=== PATIENT | female | born 1995 | race Caucasian/White ===

== ENCOUNTER 2017-10-14 17:05 | Emergency (ER) | payer MEDICAID, OTHER ==
[~2017-10-14] VITALS: Ht 167.6 cm; Wt 74.8 kg
[~2017-10-14 17:05] MED LIST: ALYACEN1 EAC1 PO; IBUPROFEN600 MG ORAL; IBUPROFEN800 MG ORAL; NKM; NORCO 5-325 TA1 EACH ORAL
[2017-10-14 18:00] VITALS: BP 110/75
--- NOTE | 2017-10-14 18:46 | Emergency Room Report ---
History of Present Illness General Chief Complaint: Pain Source: Patient Present Illness HPI 21-year-old female presents to the emergency department with 2 complaints. the first is 10 out of 10 in severity sore throat, fevers, chills times approximately 4 days. Patient reports she was seen at [facility] emergency department and discharged without any medications. Patient reports pain is exacerbated upon swallowing. Patient also reports that she has been having a long-standing history of vaginal discharge for which she's been treated for that she'll that she notices as well as yeast and she continues to repeatedly have return of her symptoms. Patient states that she is currently experiencing discharge she denies dysuria, hematuria, vaginal lesions or swollen tender lymph nodes. Patient denies history of unprotected intercourse and denies history of STDs. Patient denies abdominal pain. Denies CP, Palpitations, LOC, AMS, dizziness, Changes in Vision, Sensation, paresthesias, or a sudden severe headache. Allergies: Coded Allergies: No Known Allergies (Unverified , 07/21/14) Patient History Past Medical History: see triage record Past Surgical History: none Pertinent Family History: none Last Menstrual Period: 1 month Now: No Reviewed Nursing Documentation: PMH: Agreed, PSxH: Agreed Nursing Documentation-PMH Past Medical History: No Stated History Review of Systems All Other Systems: negative except mentioned in HPI Physical Exam Vital Signs Date Time Temp Pulse Resp B/P (MAP) Pulse Ox O2 Delivery O2 Flow Rate FiO2 10/14/17 17:11 97.9 101 18 108/72 95 Room Air Sp02 EP Interpretation: reviewed, normal General Appearance: no apparent distress, alert, GCS 15, non-toxic Head: normocephalic, atraumatic Eyes: bilateral eye normal inspection, bilateral eye PERRL ENT: hearing grossly normal, normal voice, TMs + canals normal, uvula midline, moist mucus membranes, nasal congestion, tonsillar swelling, tonsillar exudate Neck: full range of motion, no meningismus, no bony tend Respiratory: chest non-tender, lungs clear, normal breath sounds, no rhonchi, speaking full sentences Cardiovascular #1: regular rate, rhythm, no edema Gastrointestinal: non tender, soft Rectal: deferred Genitourinary: normal inspection, no CVA tenderness, adnexa normal, other - swelling and tenderness to the external vaginal labia, thick white d/c noted. Musculoskeletal: back normal, gait/station normal, normal range of motion, non- tender Neurologic: alert, oriented x3, responsive, motor strength/tone normal, sensory intact, speech normal, grossly normal Psychiatric: judgement/insight normal Skin: normal color, no rash, warm/dry, well hydrated Lymphatic: other - bilateral subparotid LAD. Medical Decision Making PA Attestation Dr. Suarez is my supervising Physician whom patient management has been discussed with. Diagnostic Impression: Primary Impression: Strep pharyngitis Additional Impressions: UTI (urinary tract infection) Qualified Codes: N30.01 - Acute cystitis with hematuria Vaginitis and vulvovaginitis ER Course 21-year-old female presents to the emergency department with 2 complaints. the first is 10 out of 10 in severity sore throat, fevers, chills times approximately 4 days. Patient reports she was seen at [facility] emergency department and discharged without any medications. Patient reports pain is exacerbated upon swallowing. Patient also reports that she has been having a long-standing history of vaginal discharge for which she's been treated for that she'll that she notices as well as yeast and she continues to repeatedly have return of her symptoms. Patient states that she is currently experiencing discharge she denies dysuria, hematuria, vaginal lesions or swollen tender lymph nodes. Patient denies history of unprotected intercourse and denies history of STDs. Patient denies abdominal pain. Denies CP, Palpitations, LOC, AMS, dizziness, Changes in Vision, Sensation, paresthesias, or a sudden severe headache. Ddx considered but are not limited to: pharyngitis, strep, COMMUNICATION INSTRUCTOR, Lud[place]igs angina, URI , UTI, Vaginitis, BV just to name a few. Vital signs: are WNL, pt. is afebrile H&PE are most consistent with: pharyngitis presumed strep. ORDERS: -WET MOUNT: no yeast, trich or Clue cells -UA: Positive for infection : bacteria with elevated inflammatory markers. ED INTERVENTIONS: -IM Abx. -Decadron IM --Morphine IM DISCHARGE: At this time pt. is stable for d/c to home. Will provide printed patient care instructions, and any necessary prescriptions. Care plan and follow up instructions have been discussed with the patient prior to discharge. Labs Test 10/14/17 17:13 Urine Color Brown Urine Appearance Slightly cloudy Urine pH 5 (4.5-8.0) Urine Specific [place] 1.025 (1.005-1.035) Urine Protein 2+ (NEGATIVE) Urine Glucose (UA) Negative (NEGATIVE) Urine Ketones 1+ (NEGATIVE) Urine Occult Blood Negative (NEGATIVE) Urine Nitrite Negative (NEGATIVE) Urine Bilirubin Negative (NEGATIVE) Urine Urobilinogen Normal MG/DL (0.0-1.0) Urine Leukocyte Esterase 3+ (NEGATIVE) Urine RBC 2-4 /HPF (0 - 2) Urine WBC 5-10 /HPF (0 - 2) Urine Squamous Epithelial Cells Few /LPF (NONE/OCC) Urine Bacteria Moderate /HPF (NONE) Last Vital Signs Date Time Temp Pulse Resp B/P (MAP) Pulse Ox O2 Delivery O2 Flow Rate FiO2 10/14/17 17:11 97.9 101 18 108/72 95 Room Air Disposition: HOME, SELF-CARE Condition: Stable Scripts Ibuprofen* (MOTRIN*) 600 Mg Tablet 600 MG ORAL THREE TIMES A DAY, #30 TAB 0 Refills Prov: Ermelinda Gamble 10/14/17 Lidocaine HCl 2% Viscous (Lidocaine HCl 2% Viscous) 100 Ml Solution 15 ML ORAL QID, #200 ML Prov: Ermelinda Gamble 10/14/17 Fluconazole (FLUCONAZOLE) 100 Mg Tablet 100 MG ORAL DAILY for 4 Days, #4 TAB 0 Refills Prov: Ermelinda Gamble 10/14/17 Nitrofurantoin Monohyd/M-Cryst* (MACROBID 100 MG*) 100 Mg Capsule 100 MG ORAL EVERY 12 HOURS for 5 Days, #10 CAP Prov: Ermelinda Gamble 10/14/17 Referrals: [facility] (PCP) Patient Instructions: Strep Throat, Urinary Tract Infection, [id number], Vaginitis, [id number] Additional Instructions: Take medications as directed. Follow up with a GEAR TESTER in 3-5 days, even if your symptoms have resolved. --Please review list of primary care clinics, if you do not already have a primary care provider Return sooner to ED if new symptoms occur, or current symptoms become worse. - Please note that this Emergency Department Report was dictated using [employer]vertising[employer] design professor technology software, occasionally this can lead to erroneous entry secondary to interpretation by the dictation equipment. Ermelinda Gambleb 8, 2018 18:46
[2017-10-14] MEDS ORDERED: Morphine Sulfate 4mg/ml Inj IM ONE (19:00)
[2017-10-14] MEDS ORDERED: Dexamethasone 4mg/ml vial IM ONE (19:00)
[2017-10-14] MEDS ORDERED: Bicillin LA 1.2 Million Units Syr IM ONE (19:00)
[2017-10-14 19:40] LABS: APPEARANCE,URINE SLIGHTLY CLOUDY; BILIRUBIN, URINE NEGATIVE (NEGATIVE); COLOR,URINE BROWN; GLUCOSE, URINE (UA) NEGATIVE (NEGATIVE); KETONES,URINE 1+ (NEGATIVE); LEUKOCYTE ESTERASE ,URINE 3+ (NEGATIVE); NITRITE,URINE NEGATIVE (NEGATIVE); PH,URINE 5 (4.5-8.0); PROTEIN,URINE 2+ (NEGATIVE); UROBILINOGEN,URINE NORMAL MG/DL (0.0-1.0)
[2017-10-14] MEDS ORDERED: NITROFURANTOIN100 M2 ORAL (20:21)
[2017-10-14] MEDS ORDERED: FLUCONAZOLE100 MG ORAL (20:21)
[2017-10-14] MEDS ORDERED: IBUPROFEN600 MG ORAL (20:21)
[2017-10-14] MEDS ORDERED: LIDOCAINE VISC100 ML ORAL (20:21)
[2017-10-14 20:38] VITALS: BP 110/75
== END 2017-10-14 20:40 | disposition home or self-care (01) ==
LOC: EMR 17:30
DX: J02.0 Streptococcal pharyngitis (principal); N39.0 Urinary tract infection, site not specified
CPT/HCPCS: 81003; 87086; 87210; 96372; 99284; J0561; J1100; J2270

== ENCOUNTER 2018-08-14 13:37 | Emergency (ER) | payer MEDICAID ==
[~2018-08-14] VITALS: Ht 167.6 cm; Wt 72.6 kg
[~2018-08-14 13:37] MED LIST changes: +FLUCONAZOLE100 MG ORAL; +LIDOCAINE VISC100 ML ORAL; +NITROFURANTOIN100 M2 ORAL
[2018-08-14 13:52] VITALS: BP 123/72
--- NOTE | 2018-08-14 14:12 | Emergency Room Report ---
History of Present Illness General Chief Complaint: Upper Respiratory Illness Source: Patient Present Illness HPI 22-year-old female with no significant past medical history here complaining of one day of sore throat stool and neck and generalized body ache. Please of low- grade fever and chills. She is rating the pain Of 10 Has Taken Amoxicillin That Was Prescribed to Her One Day Ago by Her Employer Who Happens to Be a Physician and Reports No Improvement with the Amoxicillin. Denies Rhinorrhea, Congestion, SOB, Cough, Chest Pain, Palpitation, Abdominal Pain, Nausea Vomiting Diarrhea. Patient Reports That about A Few Months Ago She Had Similar Symptoms Came Here and Was Given an Injection of Amoxicillin Patient Wants an Injection of Amoxicillin at This Time As She Mentions That She Needs to Go to Work Tomorrow. Denies All Other Associated Symptoms Allergies: Coded Allergies: No Known Allergies (Unverified , 07/21/14) Patient History Past Medical History: see triage record Past Surgical History: none Pertinent Family History: none Now: No Immunizations: UTD Reviewed Nursing Documentation: PMH: Agreed; PSxH: Agreed Nursing Documentation-PMH Past Medical History: No Stated History Review of Systems All Other Systems: negative except mentioned in HPI Physical Exam Vital Signs Date Time Temp Pulse Resp B/P (MAP) Pulse Ox O2 Delivery O2 Flow Rate FiO2 08/14/18 13:51 98.6 86 16 120/70 99 Room Air Sp02 EP Interpretation: reviewed, normal General Appearance: normal inspection, well appearing, no apparent distress, alert, GCS 15 Head: normocephalic, atraumatic Eyes: bilateral eye normal inspection, bilateral eye PERRL ENT: hearing grossly normal, no angioedema, normal voice, TMs + canals normal, tonsillar swelling - 2+ bilaterally, pharyngeal erythema Neck: full range of motion, supple, other - Bilateral anterior cervical lymphadenopathy Respiratory: normal inspection, chest non-tender, lungs clear, no wheezing Cardiovascular #1: normal inspection, no edema, no JVD, no murmur Gastrointestinal: normal inspection, soft, no mass Rectal: deferred Genitourinary: deferred Musculoskeletal: normal inspection, back normal Neurologic: normal inspection, alert, oriented x3 Psychiatric: normal inspection, judgement/insight normal, memory normal Skin: normal inspection, normal color, no rash, warm/dry Lymphatic: adenopathy - bilateral anterior cervical Medical Decision Making PA Attestation other diagnoses and treatment plans are reviewed and discussed with supervising physician Dr. Bentley Diagnostic Impression: Primary Impression: Acute pharyngitis with influenza ER Course 22-year-old female with no significant past medical history here complaining of one day of sore throat stool and neck and generalized body ache. Please of low- grade fever and chills. She is rating the pain Of 10 Has Taken Amoxicillin That Was Prescribed to Her One Day Ago by Her Employer Who Happens to Be a Physician and Reports No Improvement with the Amoxicillin. Denies Rhinorrhea, Congestion, SOB, Cough, Chest Pain, Palpitation, Abdominal Pain, Nausea Vomiting Diarrhea. Patient Reports That about A Few Months Ago She Had Similar Symptoms Came Here and Was Given an Injection of Amoxicillin Patient Wants an Injection of Amoxicillin at This Time As She Mentions That She Needs to Go to Work Tomorrow. Denies All Other Associated Symptoms Ddx considered but are not limited to influenza, URI, strep pharyngitis Vital signs: are WNL, pt. is afebrile H&PE are most consistent with pharyngitis due to influenza ORDERS: Tamiflu, naproxen ED INTERVENTIONS: None required at this time. DISCHARGE: At this time pt. is stable for d/c to home. Will provide printed patient care instructions, and any necessary prescriptions. Care plan and follow up instructions have been discussed with the patient prior to discharge. she has explained that antibiotics are only for bacteria and she gives insisting on taking them and she has been told that if she doesn't start feeling better in one week and she can start with her amoxicillin however she reports that at 21 day supply of amoxicillin was given to her by her employer [employer] further verbalizes that she understand that she has a viral infection and antibiotics will not help with viral infections Last Vital Signs Date Time Temp Pulse Resp B/P (MAP) Pulse Ox O2 Delivery O2 Flow Rate FiO2 08/14/18 13:51 98.6 86 16 120/70 99 Room Air Disposition: HOME, SELF-CARE Condition: Stable Scripts Naproxen* (NAPROXEN*) 500 Mg Tablet 500 MG ORAL TWICE A DAY for 7 Days, #14 TAB Prov: Amado Chowdhury 08/14/18 Oseltamivir Phosphate (Tamiflu) 75 Mg Capsule 75 MG ORAL TWICE A DAY for 5 Days, #10 CAP Prov: Amado Chowdhury 08/14/18 Referrals: [facility] (PCP) Patient Instructions: Pharyngitis, [id number] Additional Instructions: take Tamiflu as direct as, rest and hydrate, avoid spicy and greasy foods, antibiotics are not advised at this plan as discussed is a viral infection Amado Chowdhury Aug 14, 2018 14:12
[2018-08-14] MEDS ORDERED: TAMIFLU75 MG ORAL (14:13)
[2018-08-14] MEDS ORDERED: NAPROXEN500 M2 ORAL (14:13)
[2018-08-14 14:23] VITALS: BP 123/72
== END 2018-08-14 14:23 | disposition home or self-care (01) ==
LOC: EMR 13:58
DX: J11.1 Influenza due to unidentified influenza virus with other respiratory manifestations (principal)
CPT/HCPCS: 99283

== ENCOUNTER 2019-10-23 18:46 | Emergency (ER) | payer MEDICAID ==
[~2019-10-23] VITALS: Ht 170.2 cm; Wt 90.7 kg
[~2019-10-23 18:46] MED LIST changes: +NAPROXEN500 M2 ORAL; +TAMIFLU75 MG ORAL
--- NOTE | 2019-10-23 19:05 | NUR ---
ED Nurse Note: Patient walked in to ER due to painful urination since yestrday. AAO x4, VSS at this time.
--- NOTE | 2019-10-23 19:08 | NUR ---
ED Nurse Note: urinate sent
--- NOTE | 2019-10-23 19:09 | NUR ---
HAND-OFF: Report given to donte mercedes.
[2019-10-23 19:10] VITALS: BP 140/85
--- NOTE | 2019-10-23 19:33 | Emergency Room Report ---
History of Present Illness General Chief Complaint: Female Urogenital Problems Source: Patient Present Illness HPI 23-year-old female presents to the emergency department complaining of 8 out of 10 severity dysuria x2 days. Patient denies hematuria she reports urinary frequency. Patient denies fevers, chills, low back pain or abdominal pain/ tenderness. Patient denies vaginal discharge, genital lesions or rashes. She denies nausea or vomiting. She denies recent antibiotic use. She is currently on her period. She denies suspicion of . Allergies: Coded Allergies: No Known Allergies (Unverified , 07/21/14) Patient History Past Medical History: see triage record Past Surgical History: none Pertinent Family History: none Last Menstrual Period: now Now: No Reviewed Nursing Documentation: PMH: Agreed; PSxH: Agreed Nursing Documentation-PMH Past Medical History: No Stated History Review of Systems All Other Systems: negative except mentioned in HPI Physical Exam Vital Signs Date Time Temp Pulse Resp B/P (MAP) Pulse Ox O2 Delivery O2 Flow Rate FiO2 10/23/19 18:51 98.2 84 18 140/85 (103) 98 Room Air Sp02 EP Interpretation: reviewed, normal General Appearance: no apparent distress, alert, GCS 15, non-toxic Head: normocephalic, atraumatic Eyes: bilateral eye normal inspection, bilateral eye PERRL ENT: hearing grossly normal, normal voice Neck: full range of motion Respiratory: lungs clear, normal breath sounds, speaking full sentences Cardiovascular #1: regular rate, rhythm Gastrointestinal: normal bowel sounds, non tender, soft, non-distended, no guarding Genitourinary: normal inspection, no CVA tenderness Musculoskeletal: normal range of motion, gait/station normal, non-tender Neurologic: alert, motor strength/tone normal, oriented x3, sensory intact, responsive, speech normal Psychiatric: judgement/insight normal Skin: no rash Medical Decision Making PA Attestation Dr. Mccarthy is my supervising Physician whom patient management has been discussed with. Diagnostic Impression: Primary Impression: Dysuria ER Course 23-year-old female presents to the emergency department complaining of 8 out of 10 severity dysuria x2 days. Patient denies hematuria she reports urinary frequency. Patient denies fevers, chills, low back pain or abdominal pain/ tenderness. Patient denies vaginal discharge, genital lesions or rashes. She denies nausea or vomiting. She denies recent antibiotic use. She is currently on her period. She denies suspicion of . Ddx considered but are not limited to UTi , Pyelo, STI, Stone, Cystitis Vital signs: are WNL, pt. is afebrile H&PE are most consistent with UTI ORDERS: - UA labs are attached --WNL ED INTERVENTIONS: Pyridium PO DISCHARGE: At this time pt. is stable for d/c to home. Will provide printed patient care instructions, and any necessary prescriptions. Care plan and follow up instructions have been discussed with the patient prior to discharge. Labs Test 10/23/19 19:06 Urine Color Pale yellow Urine Appearance Clear Urine pH 6 (4.5-8.0) Urine Specific [place] 1.010 (1.005-1.035) Urine Protein Negative (NEGATIVE) Urine Glucose (UA) Negative (NEGATIVE) Urine Ketones 1+ (NEGATIVE) Urine Blood Negative (NEGATIVE) Urine Nitrite Negative (NEGATIVE) Urine Bilirubin Negative (NEGATIVE) Urine Urobilinogen Normal MG/DL (0.0-1.0) Urine Leukocyte Esterase Negative (NEGATIVE) Last Vital Signs Date Time Temp Pulse Resp B/P (MAP) Pulse Ox O2 Delivery O2 Flow Rate FiO2 10/23/19 19:10 98.2 18 140/85 98 Room Air 10/23/19 18:51 84 Status: improved Disposition: HOME, SELF-CARE Condition: Stable Scripts Phenazopyridine Hcl* (PYRIDIUM*) 200 Mg Tablet 200 MG ORAL THREE TIMES A DAY, #9 TAB 0 Refills Prov: Ermelinda Gamble 10/23/19 Patient Instructions: Dysuria Additional Instructions: Take medications as directed. Follow up with a Primary Care Provider in 3-5 days, even if your symptoms have resolved. Return sooner to ED if new symptoms occur, or current symptoms become worse. - Please note that this Emergency Department Report was dictated using [employer] plug packer technology software, occasionally this can lead to erroneous entry secondary to interpretation by the dictation equipment. Ermelinda Gamble Oct 23, 2019 19:33
[2019-10-23 19:34] LABS: APPEARANCE,URINE CLEAR; BILIRUBIN, URINE NEGATIVE (NEGATIVE); COLOR,URINE PALE YELLOW; GLUCOSE, URINE (UA) NEGATIVE (NEGATIVE); KETONES,URINE 1+ (NEGATIVE); LEUKOCYTE ESTERASE ,URINE NEGATIVE (NEGATIVE); NITRITE,URINE NEGATIVE (NEGATIVE); PH,URINE 6 (4.5-8.0); PROTEIN,URINE NEGATIVE (NEGATIVE); UROBILINOGEN,URINE NORMAL MG/DL (0.0-1.0)
[2019-10-23] MEDS ORDERED: Phenazopyridine 200mg tab ORAL ONE (19:45)
[2019-10-23] MEDS ORDERED: PHENAZOPYRIDIN200 MG ORAL (20:22)
[2019-10-23 20:25] VITALS: BP 140/85
--- NOTE | 2019-10-23 20:26 | NUR ---
ED Nurse Note: Pt cleared by health care Provider for discharge. DC instructions/prescription was given and explained to pt and verbalized understanding of teachings. All medical deviecs such as ID band removed. Pt is AAO x4, ambulatory and left with all personal belongings.
== END 2019-10-23 20:25 | disposition home or self-care (01) ==
LOC: EMR 20:17
DX: R30.0 Dysuria (principal)
CPT/HCPCS: 81003; Z7502; 99283

== ENCOUNTER 2020-06-11 23:52 | Emergency (ER) | payer MEDICAID ==
[~2020-06-11] VITALS: Ht 167.6 cm; Wt 90.3 kg
[~2020-06-11 23:52] MED LIST changes: +PHENAZOPYRIDIN200 MG ORAL
--- NOTE | 2020-06-12 00:10 | NUR ---
ED Nurse Note: Patient walked into the ED with c/o left knee pain. Patient rates pain 10/10, pain behind the knees radiating to hamstrings onset last night after doing leg exercises. Patient denies fever and chills, denies LOC or any other injury or trauma, denies N&V. Patient denies taking any pain meds. Patient is ambulatory.
--- NOTE | 2020-06-12 00:15 | NUR ---
ED Nurse Note: ERMD at bedside.
--- NOTE | 2020-06-12 00:30 | NUR ---
ED Nurse Note: Xray done at bedside
[2020-06-12] MEDS ORDERED: Ketorolac 60mg Inj IM ONE (01:00)
[2020-06-12] MEDS ORDERED: Cyclobenzaprine 10mg Tab ORAL ONE (01:00)
--- NOTE | 2020-06-12 01:00 | NUR ---
ED Nurse Note: Knee immobilizer applied to left leg.
[2020-06-12] MEDS ORDERED: CYCLOBENZAPRINE10 MG ORAL (01:09)
[2020-06-12] MEDS ORDERED: TYLENOL325 MG ORAL (01:09)
[2020-06-12 01:30] VITALS: BP 132/78
--- NOTE | 2020-06-12 01:40 | NUR ---
ER DISCHARGE NOTE: Patient is cleared to be discharged per ERMD, pt is aox4, on room air, with stable vital signs. pt was given dc and prescription instructions, pt was able to verbalize understanding, pt id band removed. pt is able to ambulate with steady gait with knee immobilizer. pt took all belongings.
--- NOTE | 2020-06-12 01:55 | Emergency Room Report ---
History of Present Illness General Chief Complaint: Lower Extremity Injury Source: Patient Present Illness HPI 24-year-old female here with left posterior thigh pain. Patient says that she was at the gym and "a heavy workout where was flexing my left leg" 2 days ago and says that yesterday she began to feel deep soreness of the left hamstring muscle. Has been taking Mobic with only mild relief. No leg swelling. No history of smoking. No long car rides or plane rides. Does not take any medications and does not take any hormone supplementation. No history of DVT or PE among herself or the family. No surgical history. Allergies: Coded Allergies: No Known Allergies (Unverified , 07/21/14) COVID-19 Screening Contact w/high risk pt: No Experienced COVID-19 symptoms?: No COVID-19 Testing performed NEWSPERSON: No Patient History Last Menstrual Period: 06/06/20 Now: No Nursing Documentation-[facility] Past Medical History: No Stated History Review of Systems All Other Systems: negative except mentioned in HPI Physical Exam Vital Signs Date Time Temp Pulse Resp B/P (MAP) Pulse Ox O2 Delivery O2 Flow Rate FiO2 06/12/20 00:09 98.1 80 18 132/78 (96) 96 Room Air Sp02 EP Interpretation: reviewed, normal General Appearance: no apparent distress, alert, GCS 15, non-toxic Head: normocephalic, atraumatic Eyes: bilateral eye normal inspection, bilateral eye PERRL ENT: hearing grossly normal, normal pharynx, no angioedema, normal voice Neck: full range of motion, supple/symm/no masses Respiratory: chest non-tender, lungs clear, normal breath sounds, speaking full sentences Cardiovascular #1: regular rate, rhythm, no edema Cardiovascular #2: 2+ carotid (R), 2+ carotid (L), 2+ radial (R), 2+ radial (L), 2+ dorsalis pedis (R), 2+ dorsalis pedis (L) Gastrointestinal: normal bowel sounds, non tender, soft, non-distended, no guarding, no rebound Rectal: deferred Genitourinary: normal inspection, no CVA tenderness Musculoskeletal: back normal, normal range of motion, calf tenderness, gait/station normal, tender, other - Pinpoint tenderness on palpation of the distal left hamstring muscle. No leg swelling. Normal pulses. Neurologic: alert, motor strength/tone normal, oriented x3, sensory intact, responsive, speech normal Psychiatric: judgement/insight normal, memory normal, mood/affect normal, no suicidal/homicidal ideation Reflexes: 3+ bicep (R), 3+ bicep (L), 3+ tricep (R), 3+ tricep (L), 3+ knee (R), 3+ knee (L) Lymphatic: no adenopathy Medical Decision Making Diagnostic Impression: Primary Impression: Injury of lower extremity Additional Impression: Muscle strain ER Course Splint: Knee immobilizer placed in left lower extremity. Neurovascular intact before and after the splint was placed X-ray: Normal x-ray of the left knee. No bone or joint abnormalities 24-year-old female here with left lower extremity pain after a heavy workout 2 days ago. Patient was hemodynamically stable and neurovascular intact in the emergency department. X-ray was negative. Patient did not have any historical or clinical symptoms of DVT. Wells score for DVT 0. She was placed in a knee immobilizer and given a dose of Toradol and Flexeril in the emergency department. She was given prescription for Flexeril and acetaminophen and told to follow-up with her primary care physician. Discharged in stable condition. Last Vital Signs Date Time Temp Pulse Resp B/P (MAP) Pulse Ox O2 Delivery O2 Flow Rate FiO2 06/12/20 01:31 98.0 06/12/20 00:09 80 18 132/78 (96) 96 Room Air Disposition: HOME, SELF-CARE Scripts Acetaminophen (Tylenol) 325 Mg Tablet 650 MG ORAL Q6H PRN for Prn Pain/Headache/Temp > 101, #30 TAB 0 Refills Prov: Johnnie Hurst M.D. 06/12/20 Cyclobenzaprine Hcl* (FLEXERIL*) 10 Mg Tablet 10 MG ORAL THREE TIMES A DAY for 7 Days, TAB Prov: Johnnie Hurst M.D. 06/12/20 Referrals: [facility] Patient Instructions: Muscle Strain, [id number] Johnnie Hurst M.D. Jun 12, 2020 01:55
--- NOTE | 2020-06-12 20:42 | Diagnostic Imaging Report ---
Indication: Left knee pain Technique: 3 views of the left knee Comparison: None Findings: No suprapatellar effusion. No acute fractures. No dislocations. The joint spaces are preserved Impression: Negative
== END 2020-06-12 01:30 | disposition home or self-care (01) ==
LOC: EMR 06-12 00:25
DX: S76.312A Strain of muscle, fascia and tendon of the posterior muscle group at thigh level, left thigh, initial encounter (principal); Y93.B9 Activity, other involving muscle strengthening exercises; Y92.39 Other specified sports and athletic area as the place of occurrence of the external cause
CPT/HCPCS: 73562; 96372; Z7502; 99283